=== PATIENT | male | born 1975 | race Caucasian/White ===

== ENCOUNTER → 2021-04-06 12:50 | Outpatient (BNVA) | payer SELFPAY | PROVIDERS: Visit Provider Nurse Practitioner Family | DX: Z20.822 Contact with and (suspected) exposure to COVID-19 (principal) | CPT/HCPCS: 87426 ==

== ENCOUNTER 2021-04-10 09:40 | Emergency (ER) | payer SELFPAY ==
[2021-04-10] VITALS (8 sets, daily range): BP systolic 99–141; BP diastolic 64–87; PULSE 72–95; RESP 14–18; TEMP 36.8–36.9; O2SAT 91–96; BMI 25.8
--- NOTE | 2021-04-10 10:52 | XR_ITS ---
WS: [id number] Portable AP upright chest, 04/10/2021 Clinical Data: covid Comparison: None. Findings: There are bilateral patchy pulmonary opacities with more opacity on the right than the left . The heart is normal. No effusions or pneumothorax are seen. XR/XR chest 1V portable [id number] Impression: Bilateral patchy pulmonary opacities consistent with pneumonia.
--- NOTE | 2021-04-10 10:59 | W.ED.COVID ---
HPI - COVID General: Chief Complaint: COVID symptoms Stated Complaint: COVID+ LOW O2 88-90% AT HOME Time Seen by Provider: 04/10/21 10:04 Triage information: Has fever, cough or shortness of breath. Exposure to COVID + person last 14 days History of Present Illness: HPI Narrative: 45 yo male known posirtive for COVID. complaint: known COVID positive Prior testing date: 04/06/21 COVID 19 common symptoms: positive fever(s), chills, cough, non-productive cough, dyspnea, fatigue, body aches, loss of sense of smell and/or taste, throat pain, nasal congestion and nausea COVID 19 other sytmptoms: negative chest pain Onset (ago): day(s) Severity: mild Treatment prior to arrival: none COVID Results: SARS-CoV-2 Antigen (Rapid) Positive (Negative) H 04/06/21 12:50 04/06/21 Review of Systems Const: Reports: fever(s), chills, body aches and fatigue ENMT: Reports: throat pain and nasal congestion Card: Denies: chest pain, edema, dyspnea on exertion or orthopnea Resp: Reports: dyspnea and non-productive cough GI: Reports: nausea : Denies: flank pain, dysuria, urinary frequency or urinary urgency Skin/Breast: Denies: rash or pruritus Physical Exam Const: COMMON NORMALS: no acute distress GENERAL APPEARANCE: cooperative and comfortable ORIENTATION/CONSCIOUSNESS: Yes awake, Yes oriented to person, Yes oriented to place and Yes oriented to time HENMT: COMMON NORMALS: normocephalic, atraumatic and hearing grossly normal bilaterally HEAD & SCALP: normocephalic and atraumatic Neck/C-Spine: COMMON NORMALS: no JVD Resp: AUSCULTATION: rhonchi and wheezes Cardio: COMMON NORMALS: no JVD, regular rate, regular rhythm and No murmurs present (Cardio) RATE: regular rate RHYTHM: regular rhythm GI: COMMON NORMALS: Soft to palpation and No hepatosplenomegaly present AUSCULTATION: Yes normoactive bowel sounds PALPATION: Yes Soft to palpation, No Tenderness to palpation present (GI), No Guarding due to palpation present (GI) and Yes No hepatosplenomegaly present Extremity: COMMON NORMALS: normal to inspection, capillary refill normal, no clubbing, cyanosis or edema, no calf tenderness and no pedal edema Neuro: SENSORIUM/ORIENTATION: Yes oriented to person, Yes oriented to place and Yes oriented to time Skin: COMMON NORMALS: no rashes or lesions noted GENERAL SKIN EXAM: no rashes or lesions noted Course Vital Signs: Vital signs: Vital Signs Temperature 98.4 F 04/10/21 14:00 Pulse Rate 95 04/10/21 16:00 Respiratory Rate 18 04/10/21 16:00 Blood Pressure 141/87 04/10/21 16:00 Pulse Oximetry 95 04/10/21 16:00 MDM - COVID MDM Narrative: Medical decision making narrative: Patient not requiring home oxygen is not a candidate for monoclonal antibodies. We will add dexamethasone. He is also complaining of a lot of nausea and vomiting we will add Zofran. Have him follow-up with his primary care doctor. He did should have his sodium rechecked within the week as well. Turn if has further problems. Reviewed with patient. Lab Data: Labs: Lab Results 04/10/21 04/10/21 04/10/21 Range/Units 11:20 11:20 11:20 WBC 5.0 (4.0-10.0) 10^3/ uL RBC 4.47 (4.1-5.3) 10^6/u L Hgb 13.7 (11.7-16.6) g/dL Hct 39.7 L (42.0-52.0) % MCV 88.8 (80-94) fL MCH 30.6 (28.0-34.0) pg MCHC 34.5 (30.0-36.0) g/dL RDW 12.4 (12.1-15.1) % Plt Count 191 (130-400) 10^3/c mm MPV 9.7 (7.4-10.4) fL Neut % (Auto) 76.5 % Lymph % (Auto) 16.9 % [place] % (Auto) 5.4 % Eos % (Auto) 0.0 % Baso % (Auto) 0.4 % Neut # (Auto) 3.84 (1.8-7.7) 10^3/u L Lymph # (Auto) 0.9 (0.8-4.8) 10^3/u L [place] # (Auto) 0.3 (0.2-0.9) 10^3/u L Eos # (Auto) 0.0 (0.0-0.8) 10^3/u L Baso # (Auto) 0.0 (0.0-0.1) 10^3/u L Nucleated RBC % (a uto) 0 % Nucleated RBCs # 0.0 /100WBC Sodium 128 L (136-145) mmol/L Potassium 4.3 (3.5-5.1) mmol/L Chloride 92 L (98-107) mmol/L Carbon Dioxide 27 (22-29) mmol/L Anion Gap 13.3 (5-19) BUN 12 (6-20) mg/dL Creatinine 0.9 (0.7-1.2) mg/dL GFR Calculation 90.4 (90-130) mL/min Glucose 104 (65-115) mg/dL Calculated Osmolal ity 266 L (285-295) mOsm/k g Lactic Acid 0.8 (0.5-2.2) mmol/L Calcium 7.9 L (8.5-10.5) mg/dL Total Bilirubin 0.3 (0.15-1.2) mg/dL AST 578 H (0-40) U/L ALT 521 H (0-41) U/L Alkaline Phosphata se 79 (40-130) IU/L C-Reactive Protein 32.1 H (0.0-4.9) mg/L Total Protein 6.3 L (6.6-8.7) g/dL Albumin 3.4 L (3.5-5.2) g/dL Globulin 2.9 (1.3-4.6) g/dL COVID Results: SARS-CoV-2 Antigen (Rapid) Positive (Negative) H 04/06/21 12:50 04/06/21 Discharge Plan Discharge Patient Disposition: Home Clinical Impression: COVID-19 Condition: Stable Prescriptions: New Zofran 4 mg tablet 4 mg PO Q6H PRN (Reason: nausea and vomiting) Qty: 15 RF: 0 dexamethasone 6 mg tablet 6 mg PO DAILY Qty: 7 RF: 0 Discharge Orders: Discharge ED (Routine); Ordered 04/10/21 Ordered By: Herson Ramos Other Ambulatory Orders: DME: Oxygen (Order) Location: None Selected Ordered By: Herson Ramos Patient Instructions: Opioid Safety Coding Level of Care Code ED Alligator Shear Operator for Chg Fwd Exam Comprehensive
[2021-04-10] MEDS: sodium chloride 0.9% 500 ML 999 ML IV (11:14)
[2021-04-10 11:32] LABS: Basophils % 0.4 %; Hematocrit 39.7 % (42.0-52.0); Hemoglobin 13.7 g/dL (11.7-16.6); Lymphocytes # 0.9 10^3/uL (0.8-4.8); Lymphocytes % 16.9 %; Mean Corpuscular HGB Conc 34.5 g/dL (30.0-36.0); Mean Corpuscular Hemoglobin 30.6 pg (28.0-34.0); Mean Corpuscular Volume 88.8 fL (80-94); Mean Platelet Volume 9.7 fL (7.4-10.4); Monocytes # 0.3 10^3/uL (0.2-0.9); Monocytes % 5.4 %; Neutrophils # 3.84 10^3/uL (1.8-7.7); Neutrophils % 76.5 %; Nucleated Red Blood Cells % 0 %; Platelet Count 191 10^3/cmm (130-400); Red Blood Count 4.47 10^6/uL (4.1-5.3); Red Cell Distribution Width 12.4 % (12.1-15.1)
[2021-04-10 11:51] LABS: Lactic Sepsis W/Reflex 0.8 mmol/L (0.5-2.2)
[2021-04-10 11:52] LABS: Alanine Aminotransferase 521 U/L (0-41); Albumin Level 3.4 g/dL (3.5-5.2); Alkaline Phosphatase 79 IU/L (40-130); Anion Gap 13.3 (5-19); Aspartate Amino Transferase 578 U/L (0-40); Blood Urea Nitrogen 12 mg/dL (6-20); C Reactive Protein 32.1 mg/L (0.0-4.9); Calcium 7.9 mg/dL (8.5-10.5); Carbon Dioxide 27 mmol/L (22-29); Chloride 92 mmol/L (98-107); Globulin 2.9 g/dL (1.3-4.6); Glomerular Filtration Rate 90.4 mL/min (90-130); Glucose 104 mg/dL (65-115); Osmolality Calculated 266 mOsm/kg (285-295); Potassium 4.3 mmol/L (3.5-5.1); Sodium 128 mmol/L (136-145); Total Bilirubin 0.3 mg/dL (0.15-1.2); Total Protein 6.3 g/dL (6.6-8.7)
[2021-04-10] MEDS: dexamethasone 10 mg/mL INJ IM (13:36)
[2021-04-10] MEDS: albuterol 8 gm MDI 2 PUFF INHALATION (15:22)
== END 2021-04-10 16:14 | disposition home or self-care (01) ==
PROVIDERS: Emergency Provider Family Medicine
DX: U07.1 COVID-19 (principal)
CPT/HCPCS: 71045; 80053; 83605; 85025; 86140; 94640; 96372; 99284; J1100; J3535; J7040